=== PATIENT | male | born 1965 | race Caucasian/White ===

== ENCOUNTER 2016-08-27 05:13 | Day surgery (SDC) | payer BC ==
[2016-08-24 20:07] LABS: HEMATOCRIT 43.1 % (40.0-51.0); HEMOGLOBIN 14.6 g/dL (13.6-17.8)
[2016-08-24 20:27] LABS: CALCIUM, SERUM 9.1 MG/DL (8.5-10.4); CHLORIDE, SERUM 105 MMOL/L (96-112); CO2 (CARBON DIOXIDE) 31 MMOL/L (24-34); CREATININE 0.92 MG/DL (0.70-1.30); GFR AFRICAN AMERICAN 110 ML/MIN (>=60); GFR NON AFRICAN AMERICAN 95 ML/MIN (>=60); GLUCOSE, SERUM 83 MG/DL (60-99); POTASSIUM, SERUM 4.2 MMOL/L (3.5-5.3); SODIUM, SERUM 141 MMOL/L (135-148)
[2016-08-24 20:28] LABS: BUN (BLOOD UREA NITROGEN) 20 MG/DL (6-23)
--- NOTE | ~2016-08-27 | OP ---
Record Of Operation [facility] [address] [place]. [address] NAME: RACHEL MEHTA : 63 STATUS : [facility] PAT#: [id number] AGE: 51 ADM/REG DATE : 08/27/16 MR#: [id number] REPORT SERV DATE: 08/28/16 DICTATED BY: CHIDI BUCK DATE: 08/27/16 REPORT STATUS : Draft TRANSCRIBED BY: MODL DATE: 08/27/16 DATE OF PROCEDURE: 08/27/2016 OPERATIVE SURGEON: Chidi Buck M.D. OPERATIVE SENIOR QA ANALYST: RONNI Mckeon COMPLICATIONS: None. ESTIMATED BLOOD LOSS: Less than 10 mL. DISPOSITION: Stable to recovery room. ANESTHESIA: General. TOURNIQUET TIME: Zero. PREOPERATIVE DIAGNOSES: 1. Left knee pain. 2. Complex posterior horn lateral meniscus tear. 3. Early osteoarthritis/chondromalacia. 4. Degenerative anterior cruciate ligament, partial thickness injury. POSTOPERATIVE DIAGNOSES: 1. Left knee pain. 2. Complex posterior horn lateral meniscus tear. 3. Early osteoarthritis/chondromalacia. 4. Degenerative anterior cruciate ligament, partial thickness injury. 5. Grade 3 chondromalacia of the weightbearing zone in the lateral tibial plateau. 6. Grade 2 chondromalacia of the weightbearing zone in medial femoral condyle. 7. 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 PROCEDURES PERFORMED: 1. Left knee examination under anesthesia. 2. Left knee arthroscopy. 3. Partial lateral meniscectomy. 4. Shaving chondroplasty of all areas of chondromalacia as listed above. 5. Extensive debridement of degenerative partial thickness anterior cruciate ligament tear. PROCEDURE: The diagnoses listed above as well as the recommended surgical procedure and risks and benefits thereof were discussed in full detail with Rachel Mehta and family on 08/27/2016. The patient understands that a portion of his current symptoms are likely a result of early degenerative osteoarthritis. The patient understands that the intent of today's arthroscopy is to treat soft tissue injury and the mechanical symptoms resulting from said pathology. He understands that arthroscopy will not reverse or eradicate Record Of Operation [facility] [address] [place]. [address] NAME: RACHEL MEHTA : 63 STATUS : [facility] PAT#: [id number] AGE: 51 ADM/REG DATE : 08/27/16 MR#: [id number] REPORT SERV DATE: 08/28/16 DICTATED BY: CHIDI BUCK DATE: 08/27/16 REPORT STATUS : Draft TRANSCRIBED BY: ADELINE DATE: 08/27/16 osteoarthritis and that they will likely continue to experience some symptoms related to the existing arthritis that may progress over time, potentially needing additional surgical procedures in the future, possibly even a total knee arthroplasty for definitive management in the end. The patient has expressed their understanding of these details and has freely requested to proceed with arthroscopic intervention. The patient and family asked appropriate questions which were answered to their satisfaction. Informed consent was signed, witnessed, and placed in the chart. The appropriate lower extremity was marked for confirmation and the patient was wheeled to the Operative [place] where general endotracheal anesthesia was administered. The patient was placed in the supine position on the operative table with all non-operative extremities well padded and secured for the duration of the case. The left lower extremity was examined under anesthesia and then prepped and draped in the typical orthopedic sterile fashion. A surgical pause was performed confirming both the correct patient as well as the proper surgical site and procedure. All present were in agreement. The patient received the appropriate antibiotics for perioperative antibiosis. Next, 10 cc of 0.25% Marcaine without Epinephrine was injected into the standard inferolateral and inferomedial parapatellar portal sites. A #11 blade was used to establish the inferolateral parapatellar portal site through which an arthroscopic cannula and blunt obturator were inserted atraumatically into the intercondylar notch. A full diagnostic arthroscopy was performed. Valgus stress was applied to the knee and using an outside-in spinal needle technique an inferomedial parapatellar portal was established. All three compartments were fully probed and evaluated for injury or derangement. A probe was used to examine the medial compartment which was found to be in decent condition without evidence for significant pathology. There was evidence for grade 2 chondromalacia of the weightbearing zone in the medial femoral condyle and a shaving chondroplasty was conducted. The medial meniscus looked to be in decent condition with only mild degenerative fraying, but no significant tear pattern. The knee was then taken to a [id number] position, lateral compartment was entered. The lateral meniscus did show evidence for significant tearing of the posterior horn. There was a small bucket-handle fragment hinged medially. An arthroscopic shaver and biter were used to perform partial lateral meniscectomy without difficulty removing all damaged tissue and preserving the remainder of the healthy meniscus. Approximately 40% of the posterior horn required resection due to injury. There was also evidence for grade 3 chondromalacia of the central and medial aspect of the weightbearing zone in the lateral tibial plateau. A shaving chondroplasty was conducted. The knee was then taken to 90 degrees flexion and the cruciate ligaments were evaluated. The anterior cruciate ligament indeed showed evidence for degenerative partial- thickness tearing. A shaver was used to perform an extensive debridement of all damaged ACL tissue trimming back down to stable surface in an effort to optimize healing and reduce the risk of propagation. After a thorough evaluation of all articular surfaces, weight-bearing and non, an Record Of Operation [address] [place]. [address] NAME: RACHEL MEHTA : 63 STATUS : [facility]#: [id number] AGE: 51 ADM/REG DATE : 08/27/16 MR#: [id number] REPORT SERV DATE: 08/28/16 DICTATED BY: CHIDI BUCK DATE: 08/27/16 REPORT STATUS : Draft TRANSCRIBED BY: ADELINE DATE: 08/27/16 arthroscopic shaver was used to perform a chondroplasty of all areas of chondromalacia documented above. There did not appear to be any areas of full subchondral bone exposure or grade IV chondromalacia. At this juncture, all arthroscopic instruments, excess fluid, and debris were removed from the suprapatellar pouch as well as both medial and lateral gutters. The portals were closed with 3-0 Monocryl in the subcuticular layers and Steri-Strips on the skin. A sterile dressing was secured with a Sof-Rol and an MARYSE wrap. An ice pack was provided. The patient was then awakened from anesthesia without difficulty and transferred to the Post Anesthesia Care Unit in stable condition where a postoperative exam was within normal limits. A lengthy discussion was held with the patient's family, detailing all operative findings as well as the procedures performed with all questions answered to their satisfaction. The patient was encouraged to weight bear as tolerated and a to work on range of motion to the foot, ankle, calf, and knee almost immediately in an effort to increase circulation and reduce risk of DVT. He does have a previous history of a superficial blood clot and because of that we have again reminded him of the range of motion exercises as well as placed him on enteric-coated aspirin to reduce the risk as low as possible. We have educated him as to the warning signs of deep venous thrombosis and instructed him to notify us immediately should they occur. The patient has expressed his understanding of these details and has agreed to comply. I certify that the identification of the principal and secondary diagnoses and the procedures performed are accurate and complete to the best of my knowledge. CCS/MODL Chidi Buck M.D. / [id number] CC: Dwayne Khan M.D.
[~2016-08-27 05:13] MED LIST: ADALAT CC90 MG PO; AFEDITAB30 MG PO; ALAWAY0.025 % OPH; ASAB PO; COZ50 PO; D 5000 PO; DYMISTA NASAL S23 GM NAS; FISH OIL1200 MG PO; FLECAINIDE150 MG PO; FLUTICASONE; GLUCPH PO; HYDROCHLOROT12.5 MG PO; IBU-200200 MG PO; L40 PO; LOP25 PO; MAXAIR AUTOHALE1 INH INH; MICARDIS H80 MG/25 M PO; MULTIPLE VIT PO; PATADAY OP; PATANASE0.6 % NAS; SINGULAIR1 PO; TAMBOCOR150 MG PO; TESTOST CYP200 MG/ML IM; THERAPEUTIC PO; VITAMIN D31000 UNIT PO; ZADITOR0.025 % OPH; ZANTAC 150 PO; ZYRTEC ALLGY10 MG PO; [UNRECOGNIZED DRUG - CODE] PO
== END 2016-08-27 10:56 | disposition home or self-care (01) ==
LOC: SDC 05:13
PROVIDERS: Specialist
PROC: 0MQP4ZZ Repair Left Knee Bursa and Ligament, Percutaneous Endoscopic Approach (ICD-10-PCS; 2016-08-27)
PROC: 0SBD4ZZ Excision of Left Knee Joint, Percutaneous Endoscopic Approach (ICD-10-PCS; principal; 2016-08-27 06:45)
DX: S83.272A Complex tear of lateral meniscus, current injury, left knee, initial encounter (principal); M22.42 Chondromalacia patellae, left knee; M25.562 Pain in left knee; Z79.899 Other long term (current) drug therapy; Z79.82 Long term (current) use of aspirin; Z88.1 Allergy status to other antibiotic agents; Z86.73 Personal history of transient ischemic attack (TIA), and cerebral infarction without residual deficits; Z98.890 Other specified postprocedural states; Z82.49 Family history of ischemic heart disease and other diseases of the circulatory system; Z79.84 Long term (current) use of oral hypoglycemic drugs
CPT/HCPCS: 36415; 80048; 82962; 85014; 85018; 88304; 93005; J0690; J2250; J2405; J2710; J3010